=== PATIENT | male | born 1980 | race Caucasian/White ===

== ENCOUNTER 2018-09-09 20:41 | Inpatient (IN) | payer OTHER ==
[2018-09-09] MEDS ORDERED: NACL 0.9% 3 ML SYG IV (22:00)
[2018-09-09] MEDS ORDERED: LORAZEPAM 2 MG INJ IV (22:00)
[2018-09-09] MEDS ORDERED: ONDANSETRON 4 MG INJ IV (22:00)
[2018-09-09] MEDS ORDERED: ACETAMINOPHEN 325 MG TAB PO (22:00)
[2018-09-09] MEDS: DEXTROSE 5%-0.45% NACL 1,000 ML IV (22:43)
[2018-09-09] MEDS: CHLORDIAZEPOXIDE 25 MG CAP PO (22:43)
[2018-09-09] MEDS: MULTIVITAMINS 10 ML, THIAMINE 100 MG, FOLIC ACID 1 MG in SOD CHLORIDE 0.9% 1,000 ML IVPB (23:41)
[2018-09-10] MEDS: LORAZEPAM 2 MG INJ IV ×2 (02:10→11:06)
[2018-09-10 05:48] LABS: ADD MAN DIFF? NO
[2018-09-10 05:51] LABS: WHITE BLOOD COUNT 5.4 10^3/ul (4.8-10.8)
[2018-09-10 05:51] LABS: BASOPHIL # 0.1 10^3/ul (0.0-0.1); BASOPHILS % 1.1 % (0.0-2.0); EOSINOPHILS # 0.1 10^3/ul (0.0-0.5); EOSINOPHILS % 1.7 % (0.0-7.0); HEMOGLOBIN 13.9 g/dl (14.0-18.0); LYMPHOCYTES # 2.2 10^3/ul (0.8-2.9); LYMPHOCYTES % 41.3 % (15.0-51.0); MEAN CORPUSCULAR HEMOGLOBIN 30.7 pg (29.0-33.0); MEAN CORPUSCULAR HGB CONC 34.8 g/dl (32.0-37.0); MEAN CORPUSCULAR VOLUME 88.3 fl (82.0-101.0); MEAN PLATELET VOLUME 11.6 fl (7.4-10.4); MONOCYTE # 0.5 10^3/ul (0.3-0.9); MONOCYTES % 9.8 % (0.0-11.0); NEUTROPHIL # 2.5 10^3/ul (1.6-7.5); NEUTROPHILS % 45.9 % (39.0-77.0); PLATELET COUNT 108 10^3/UL (140-415); POSITIVE DIFF @See below; RED BLOOD COUNT 4.53 10^6/ul (4.70-6.10); RED CELL DISTRIBUTION WIDTH 12.5 % (11.5-14.5)
[2018-09-10 06:17] LABS: PHOSPHORUS 4.1 mg/dl (2.5-4.9)
[2018-09-10 06:23] LABS: ALANINE AMINOTRANSFERASE 21 IU/L (13-69); ALBUMIN 3.4 g/dl (3.3-4.9); ALBUMIN/GLOBULIN RATIO 1.54; ALKALINE PHOSPHATASE 24 IU/L (42-121); ANION GAP 6 (5-13); ASPARTATE AMINO TRANSFERASE 30 IU/L (15-46); BLOOD UREA NITROGEN 11 mg/dl (7-20); CALCIUM 8.7 mg/dl (8.4-10.2); CARBON DIOXIDE 26 mmol/L (21-31); CHLORIDE 107 mmol/L (97-110); CREATININE 0.69 mg/dl (0.61-1.24); Estimated GFR > 60 mL/min (>60); GLUCOSE 89 mg/dl (70-220); MAGNESIUM 2.1 mg/dl (1.7-2.5); POTASSIUM 3.9 mmol/L (3.5-5.1); SODIUM 139 mmol/L (135-144); TOTAL PROTEIN 5.6 g/dl (6.1-8.1)
[2018-09-10] MEDS: DEXTROSE 5%-0.45% NACL 1,000 ML IV ×4 (07:31→22:00)
[2018-09-10] MEDS: CHLORDIAZEPOXIDE 25 MG CAP PO ×3 (08:57→20:41)
[2018-09-10] MEDS: FAMOTIDINE 20 MG INJ IV ×2 (08:57→20:40)
[2018-09-10] MEDS: MULTIVITAMINS 10 ML, THIAMINE 100 MG, FOLIC ACID 1 MG in SOD CHLORIDE 0.9% 1,000 ML IVPB (11:07)
[2018-09-10] MEDS: LORAZEPAM 1 MG TAB PO ×2 (14:12→21:58)
[2018-09-11] MEDS: LORAZEPAM 2 MG INJ IV ×2 (02:40→17:10)
[2018-09-11 05:29] LABS: ADD MAN DIFF? NO
[2018-09-11 05:34] LABS: BASOPHIL # 0.1 10^3/ul (0.0-0.1); EOSINOPHILS # 0.1 10^3/ul (0.0-0.5); EOSINOPHILS % 2.5 % (0.0-7.0); HEMATOCRIT 42.6 % (42.0-52.0); HEMOGLOBIN 14.8 g/dl (14.0-18.0); LYMPHOCYTES # 1.9 10^3/ul (0.8-2.9); LYMPHOCYTES % 35.9 % (15.0-51.0); MEAN CORPUSCULAR HEMOGLOBIN 30.8 pg (29.0-33.0); MEAN CORPUSCULAR HGB CONC 34.7 g/dl (32.0-37.0); MEAN CORPUSCULAR VOLUME 88.8 fl (82.0-101.0); MEAN PLATELET VOLUME 9.6 fl (7.4-10.4); MONOCYTE # 0.5 10^3/ul (0.3-0.9); MONOCYTES % 8.9 % (0.0-11.0); NEUTROPHIL # 2.7 10^3/ul (1.6-7.5); NEUTROPHILS % 51.5 % (39.0-77.0); PLATELET COUNT 207 10^3/UL (140-415); RED CELL DISTRIBUTION WIDTH 12.3 % (11.5-14.5)
[2018-09-11 05:34] LABS: WHITE BLOOD COUNT 5.2 10^3/ul (4.8-10.8)
[2018-09-11 05:47] LABS: HEMOGLOBIN A1C 4.7 % (0-5.9)
[2018-09-11] MEDS: LORAZEPAM 1 MG TAB PO ×3 (05:47→22:21)
[2018-09-11] MEDS: DEXTROSE 5%-0.45% NACL 1,000 ML IV ×3 (05:50→22:22)
[2018-09-11 05:53] LABS: INR 1.03; PROTIME 13.6 Sec (11.9-14.9); PT RATIO 1.1
[2018-09-11 05:54] LABS: ALANINE AMINOTRANSFERASE 22 IU/L (13-69); ALBUMIN 3.6 g/dl (3.3-4.9); ALBUMIN/GLOBULIN RATIO 1.63; ALKALINE PHOSPHATASE 36 IU/L (42-121); ANION GAP 4 (5-13); ASPARTATE AMINO TRANSFERASE 23 IU/L (15-46); BILIRUBIN,INDIRECT 0.5 mg/dl (0-1.1); BILIRUBIN,TOTAL 0.5 mg/dl (0.2-1.3); BLOOD UREA NITROGEN 10 mg/dl (7-20); CALCIUM 8.7 mg/dl (8.4-10.2); CARBON DIOXIDE 26 mmol/L (21-31); CHLORIDE 109 mmol/L (97-110); CREATININE 0.66 mg/dl (0.61-1.24); Estimated GFR > 60 mL/min (>60); GLUCOSE 96 mg/dl (70-220); MAGNESIUM 2.2 mg/dl (1.7-2.5); PHOSPHORUS 4.1 mg/dl (2.5-4.9); POTASSIUM 3.8 mmol/L (3.5-5.1); SODIUM 139 mmol/L (135-144); TOTAL PROTEIN 5.8 g/dl (6.1-8.1)
[2018-09-11 06:04] LABS: TROPONIN-I < 0.012 ng/ml (0.000-0.120)
[2018-09-11 06:08] LABS: LIPASE 114 U/L (23-300)
[2018-09-11 06:10] LABS: FREE T4 (FREE THYROXINE) 0.82 ng/dl (0.79-2.35)
[2018-09-11 06:23] LABS: TRIIODOTHYRONINE 0.91 ng/ml (0.97-1.69)
[2018-09-11] MEDS: MULTIVITAMINS 10 ML, THIAMINE 100 MG, FOLIC ACID 1 MG in SOD CHLORIDE 0.9% 1,000 ML IVPB (09:08)
[2018-09-11] MEDS: CHLORDIAZEPOXIDE 25 MG CAP PO ×3 (09:08→21:03)
[2018-09-11] MEDS: FAMOTIDINE 20 MG INJ IV ×2 (09:08→21:04)
[2018-09-11] MEDS: ENOXAPARIN 40 MG/0.4 ML SYG SC (09:14)
[2018-09-11] MEDS ORDERED: LORAZEPAM 0.5 MG TAB (13:10)
[2018-09-12] MEDS: LORAZEPAM 1 MG TAB PO ×3 (05:39→21:40)
[2018-09-12] MEDS: DEXTROSE 5%-0.45% NACL 1,000 ML IV ×2 (05:41→13:51)
[2018-09-12] MEDS: CHLORDIAZEPOXIDE 25 MG CAP PO ×3 (08:49→20:35)
[2018-09-12] MEDS: FAMOTIDINE 20 MG INJ IV (08:49)
[2018-09-12] MEDS: ENOXAPARIN 40 MG/0.4 ML SYG SC (09:17)
[2018-09-12] MEDS: MULTIVITAMINS 10 ML, THIAMINE 100 MG, FOLIC ACID 1 MG in SOD CHLORIDE 0.9% 1,000 ML IVPB (12:29)
[2018-09-12] MEDS: LORAZEPAM 2 MG INJ IV (16:17)
[2018-09-13] MEDS: LORAZEPAM 2 MG INJ IV (02:05)
[2018-09-13] MEDS: LORAZEPAM 1 MG TAB PO (06:16)
[2018-09-13] MEDS: FAMOTIDINE 20 MG INJ IV (08:18)
[2018-09-13] MEDS: THIAMINE 100 MG TAB PO (08:18)
[2018-09-13] MEDS: CHLORDIAZEPOXIDE 25 MG CAP PO ×3 (08:18→18:30)
[2018-09-13] MEDS: ENOXAPARIN 40 MG/0.4 ML SYG SC (08:21)
[2018-09-13] MEDS ORDERED: LORAZEPAM 0.5 MG TAB (13:58)
[2018-09-13] MEDS: LORAZEPAM 0.5 MG TAB PO (14:31)
[2018-09-13] MEDS ORDERED: CHLORDIAZEPOXIDE 25 MG CAP PO (17:00)
== END 2018-09-13 19:15 | disposition home or self-care (01) | DRG 897 ==
LOC: 2NE 09-11 19:22 → 6WM 20:41
DX: F10.230 Alcohol dependence with withdrawal, uncomplicated (principal); G40.509 Epileptic seizures related to external causes, not intractable, without status epilepticus; K70.9 Alcoholic liver disease, unspecified; F32.9 Major depressive disorder, single episode, unspecified; R00.1 Bradycardia, unspecified; F10.20 Alcohol dependence, uncomplicated; F10.220 Alcohol dependence with intoxication, uncomplicated; Y90.6 Blood alcohol level of 120-199 mg/100 ml
CPT/HCPCS: 80053; 83036; 83690; 83735; 84100; 84439; 84443; 84480; 84484; 85025; 85610; 92610; 97161